=== PATIENT | female | born 1990 | race Caucasian/White ===

== ENCOUNTER 2017-01-07 18:29 | Emergency (ER) | payer SELFPAY ==
--- NOTE | 2017-01-07 20:06 | ER Document Report ---
ED Skin Rash/Insect Bite/Abscs - General Mode of Arrival: Ambulatory Information source: Patient TRAVEL OUTSIDE OF THE [place] IN LAST 30 DAYS: No - General Chief Complaint: Abscess Stated Complaint: ABSCESS ON STOMACH Time Seen by Provider: 01/07/17 19:34 Notes: Patient is a 26-year-old female presenting to the emergency department today with complaints of right lower quadrant abdominal abscess. Patient states she was seen in urgent care prior to arrival here and she was told it was an abscess and that she needed to come to the emergency room to have it drained. Patient states she noticed a "pea-sized knot" there for approximately 3 months which caused no pain. Patient states she recently went on a walk and she believes her shorts were rubbing against this area and it has progressively gotten bigger over the last 2 days. Patient has a history of MRSA. (TAVO MCCAULEY) - Related Data Allergies/Adverse Reactions: cefixime [From Suprax] Allergy (Verified 01/07/17 18:30) sulfamethoxazole [From Septra] Allergy (Verified 01/07/17 18:30) trimethoprim [From Septra] Allergy (Verified 01/07/17 18:30) Past Medical History - General Information source: Patient - Social History Smoking Status: Never Smoker Cigarette use (# per day): No Frequency of alcohol use: None Drug Abuse: None Lives with: Family Family History: Reviewed & Not Pertinent Patient has suicidal ideation: No Patient has homicidal ideation: No Pulmonary Medical History: Reports: Hx Asthma - childhood Past Surgical History: Reports: Hx Tonsillectomy - Immunizations Hx Diphtheria, Pertussis, Tetanus Vaccination: Yes - given today Review of Systems - Review of Systems Constitutional: No symptoms reported EENT: No symptoms reported Cardiovascular: No symptoms reported Respiratory: No symptoms reported Gastrointestinal: No symptoms reported Genitourinary: No symptoms reported Female Genitourinary: No symptoms reported Musculoskeletal: No symptoms reported Skin: See HPI, Other - possible abscess Hematologic/Lymphatic: No symptoms reported Neurological/Psychological: No symptoms reported -: Yes All other systems reviewed and negative Physical Exam - Vital signs Vitals: Temp Pulse Resp BP Pulse Ox 99.1 F 91 16 146/99 H 98 01/07/17 18:30 01/07/17 18:30 01/07/17 18:30 01/07/17 18:30 01/07/17 18:30 - Notes Notes: Physical Exam: General: Alert, appears well. HEENT: Normocephalic. Atraumatic. PERRL. Extraocular movements intact. Oropharynx clear. Neck: Supple. Non-tender. Respiratory: No respiratory distress. Clear and equal breath sounds bilaterally. Cardiovascular: Regular rate and rhythm. Abdominal: Normal Inspection. Non-tender. No distension. Normal Bowel Sounds. Back: Non-tender. No deformity or step off. Extremities: Moves all four extremities. Upper extremities: Normal inspection. Normal ROM. Lower extremities: Normal inspection. No edema. Normal ROM. Neurological: Normal cognition. AAOx4. Normal speech. Psychological: Normal affect. Normal Mood. Skin: Area of erythema to right lower abdomen consistent with cellulitis surrounding what appears to be a lipoma. No drainage or fluctuance. (TAVO MCCAULEY) Discharge - Discharge Clinical Impression: Cellulitis Condition: Stable Disposition: HOME, SELF-CARE Instructions: MRSA Cellulitis ([facility]) Additional Instructions: Cellulitis You have an infection of your skin and underlying soft tissues called cellulitis. This is due to bacteria, which can enter through any break in the skin, or even through an irritated hair follicle. Untreated, cellulitis will usually worsen. Antibiotics are required. Usually, warm packs or warm soaks, and elevation of the infected area are recommended. You should start getting better within 24 to 36 hours. Most infections respond quickly to the right medication. Follow-up care is important, however, to check for abscess (boil) formation, unsuspected foreign body, or resistant infection. If you develop fever, chills, or if the area of infection is becoming rapidly more swollen or painful, call the doctor at once. follow up with your primary care physician in 2-3 days return for increased worsening or new symptoms Prescriptions: Clindamycin HCl 300 mg PO BID #14 capsule Clindamycin in 0.9 % Sod Chlor [Clindamycin 600 mg/50 ml-Ns] 600 mg IV BID #14 piggyback Scribe Attestation: 01/07/17 21:25 I personally performed the services described in the documentation reviewed the documentation recorded by my scribe in my presence and it accurately and completely records my words and actions (RASHIDA FENTON) Scribe Documentation - Scribe Written by Scribe:: Jh Love, 01/08/2017 0311 acting as scribe for :: Marty
[2017-01-07] MEDS ORDERED: CLINDAMYCIN PHOSPHATE INJ 300 MG/2 ML SDV IM ONE (20:29)
[2017-01-07 21:42] VITALS: BP 125/78
== END 2017-01-07 21:43 | disposition home or self-care (01) ==
LOC: ER 18:29
DX: L03.311 Cellulitis of abdominal wall (principal); Z88.3 Allergy status to other anti-infective agents
CPT/HCPCS: 96372; 99282

== ENCOUNTER 2018-12-10 18:11 | Emergency (ER) | payer BC ==
--- NOTE | 2018-12-10 18:55 | ER Document Report ---
ED Medical Screen (RME) - General Chief Complaint: Overdose Stated Complaint: POSSIBLE OVERDOSE Time Seen by Provider: 12/10/18 18:52 Mode of Arrival: Ambulatory Information source: Patient, Law Enforcement Notes: Patient is a 28-year-old female presented to the emergency department on IVC papers. Patient allegedly overdosed on Percocet. She reports that she took one 30 mg tablet of Percocet just a few hours prior to arrival. She states she did this because she was having some pain. This is not prescribed to her. She denies any suicidal or homicidal intentions. Per [employer] she had to be given Narcan which is why she was IVC'd as after she was given Narcan she became alert and was trying to decline treatment. I have greeted and performed a rapid initial assessment of this patient. A comprehensive ED assessment and evaluation of the patient, analysis of test results and completion of the medical decision making process will be conducted by additional ED providers. Dictation of this chart was performed using voice recognition software; therefore, there may be some unintended grammatical errors. TRAVEL OUTSIDE OF THE [place] IN LAST 30 DAYS: No - Related Data Allergies/Adverse Reactions: cefixime [From Suprax] Allergy (Verified 12/10/18 18:12) sulfamethoxazole [From Septra] Allergy (Verified 12/10/18 18:12) trimethoprim [From Septra] Allergy (Verified 12/10/18 18:12) Past Medical History - Social History Drug Abuse: Marijuana, Prescription drugs Pulmonary Medical History: Reports: Hx Asthma - childhood Renal/ Medical History: Denies: Hx Peritoneal Dialysis Past Surgical History: Reports: Hx Tonsillectomy - Immunizations Hx Diphtheria, Pertussis, Tetanus Vaccination: Yes - given today Physical Exam - Vital signs Vitals: Temp Pulse Resp BP Pulse Ox 98.6 F 74 16 141/88 H 97 12/10/18 18:18 12/10/18 18:18 12/10/18 18:18 12/10/18 18:18 12/10/18 18:18 Course - Vital Signs Vital signs: Temp Pulse Resp BP Pulse Ox 98.6 F 74 16 141/88 H 97 12/10/18 18:18 12/10/18 18:18 12/10/18 18:18 12/10/18 18:18 12/10/18 18:18
[2018-12-10] MEDS ORDERED: ONDANSETRON 4 MG TAB.RAPDIS PO ONE (18:59)
[2018-12-10] MEDS ORDERED: ONDANSETRON 4 MG TAB.RAPDIS ONE (18:59)
[2018-12-10 19:52] LABS: ABSOLUTE EOSINOPHILS # (AUTO) 0.1 10^3/uL (0.0-0.6); ABSOLUTE LYMPHOCYTES (AUTO) 2.2 10^3/uL (0.5-4.7); ABSOLUTE MONOCYTES (AUTO) 1.2 10^3/uL (0.1-1.4); ABSOLUTE NEUT (AUTO) 14.2 10^3/uL (1.7-8.2); BASOPHILS % (AUTO) 0.2 % (0-2); EOSINOPHILS % (AUTO) 0.7 % (0-6); HEMATOCRIT 43.4 % (36.0-47.0); HEMOGLOBIN 14.9 g/dL (12.0-15.5); LYMPHOCYTES % (AUTO) 12.5 % (13-45); MEAN CORPUSCULAR HGB CONC 34.4 g/dL (32.0-36.0); MEAN CORPUSCULAR VOLUME 93 fl (80-97); MONOCYTES % (AUTO) 6.7 % (3-13); PLATELET COUNT 239 10^3/uL (150-450); RED BLOOD COUNT 4.66 10^6/uL (3.72-5.28); RED CELL DISTRIBUTION WIDTH 12.7 % (11.5-14.0); SEGMENTED NEUTROPHILS % (AUTO) 79.9 % (42-78); TOTAL CELLS COUNTED % (AUTO) 100 %; WHITE BLOOD COUNT 17.8 10^3/uL (4.0-10.5)
[2018-12-10 19:58] LABS: APPEARANCE,URINE SLIGHTLY-CLOUDY; BILIRUBIN,URINE NEGATIVE (NEGATIVE); COLOR,URINE YELLOW; GLUCOSE, URINE NEGATIVE (NEGATIVE); KETONES,URINE NEGATIVE (NEGATIVE); LEUKOCYTE ESTERASE,URINE NEGATIVE (NEGATIVE); NITRITE,URINE NEGATIVE (NEGATIVE); PROTEIN,URINE NEGATIVE (NEGATIVE); URINE SPECIFIC GRAVITY 1.015; UROBILINOGEN,URINE NEGATIVE mg/dL (<2.0)
--- NOTE | 2018-12-10 20:03 | EKG REPORT ---
SEVERITY:- NORMAL ECG - SINUS RHYTHM : Confirmed by: Salvador Azul MD 10-Dec-2018 20:02:33
[2018-12-10 20:11] LABS: URINE AMPHETAMINES SCREEN NEGATIVE; URINE BARBITURATES SCREEN NEGATIVE; URINE BENZODIAZEPINES SCREEN NEGATIVE; URINE COCAINE SCREEN NEGATIVE; URINE MARIJUANA (THC) SCREEN UNCONFIRMED POSITIVE; URINE METHADONE SCREEN NEGATIVE; URINE PHENCYCLIDINE SCREEN NEGATIVE
[2018-12-10 20:13] LABS: ALANINE AMINOTRANSFERASE 37 U/L (9-52); ALBUMIN 4.5 g/dL (3.5-5.0); ALKALINE PHOSPHATASE 55 U/L (38-126); ANION GAP 12 (5-19); ASPARTATE AMINO TRANSFERASE 25 U/L (14-36); BILIRUBIN,DIRECT 0.2 mg/dL (0.0-0.4); BILIRUBIN,TOTAL 0.2 mg/dL (0.2-1.3); BLOOD UREA NITROGEN 9 mg/dL (7-20); CALCIUM 9.8 mg/dL (8.4-10.2); CARBON DIOXIDE 26 mmol/L (22-30); CHLORIDE 105 mmol/L (98-107); GLUCOSE 114 mg/dL (75-110); POTASSIUM 4.6 mmol/L (3.6-5.0); SODIUM 143.3 mmol/L (137-145); TOTAL PROTEIN 7.6 g/dL (6.3-8.2)
[2018-12-10 20:14] LABS: ACETAMINOPHEN < 10 ug/mL (10-30); ALCOHOL < 10 mg/dL (NONE DETECTED); SALICYLATE < 1.0 mg/dL (2.0-20.0)
--- NOTE | 2018-12-10 21:40 | ER Document Report ---
ED General - General Chief Complaint: Overdose Stated Complaint: POSSIBLE OVERDOSE Time Seen by Provider: 12/10/18 18:52 Primary Care Provider: CARMENCITA ALAN MD [Primary Care Provider] - Follow up as needed Mode of Arrival: Ambulatory Information source: Patient Notes: This is a 28-year-old female that was brought in by EMS after an overdose. Patient reports that she was having back pain after a softball game yesterday. She states she ate lunch at 1130 (a salad). She states she took a pain pill at approximately 5 PM she got the pain pill from her friend. On her way home she was at the gas station and became unresponsive. EMS was called to the scene and found the patient with agonal breathing and gave her Narcan which completely reversed her symptoms. She was brought to the emergency room and had been in the ER for several hours. Currently, she has no complaints. She is fully alert and oriented x3 and is requesting to go home. She denies any suicidal ideations. There was a question on whether the patient was an involuntary commit, but this was not an intentional overdose. TRAVEL OUTSIDE OF THE [place] IN LAST 30 DAYS: No - HPI Onset: Just prior to arrival Onset/Duration: Sudden Quality of pain: No pain Severity: None Pain Level: Denies Associated symptoms: denies: Chest pain, Fever, Shortness of breath Exacerbated by: Denies Relieved by: Denies Similar symptoms previously: No Recently seen / treated by doctor: No - Related Data Allergies/Adverse Reactions: cefixime [From Suprax] Allergy (Verified 12/10/18 18:12) sulfamethoxazole [From Septra] Allergy (Verified 12/10/18 18:12) trimethoprim [From Septra] Allergy (Verified 12/10/18 18:12) Past Medical History - General Information source: Patient, Law Enforcement - Social History Smoking Status: Never Smoker Cigarette use (# per day): No Chew tobacco use (# tins/day): No Frequency of alcohol use: None Drug Abuse: Marijuana, Prescription drugs Lives with: Family Family History: Reviewed & Not Pertinent Patient has suicidal ideation: No Patient has homicidal ideation: No - Past Medical History Cardiac Medical History: Reports: None Pulmonary Medical History: Reports: Hx Asthma - childhood Neurological Medical History: Reports: None Endocrine Medical History: Reports: None Renal/ Medical History: Reports: None. Denies: Hx Peritoneal Dialysis Malignancy Medical History: Reports: None GI Medical History: Reports: None Musculoskeletal Medical History: Reports None Skin Medical History: Reports None Psychiatric Medical History: Reports: None Traumatic Medical History: Reports: None Infectious Medical History: Reports: None Past Surgical History: Reports: Hx Tonsillectomy - Immunizations Hx Diphtheria, Pertussis, Tetanus Vaccination: Yes - given today Review of Systems - Review of Systems Constitutional: No symptoms reported EENT: No symptoms reported Cardiovascular: See HPI Respiratory: See HPI Gastrointestinal: No symptoms reported Genitourinary: No symptoms reported Female Genitourinary: No symptoms reported Musculoskeletal: No symptoms reported Skin: No symptoms reported Hematologic/Lymphatic: No symptoms reported Neurological/Psychological: No symptoms reported Physical Exam - Vital signs Vitals: Temp Pulse Resp BP Pulse Ox 98.6 F 74 16 141/88 H 97 12/10/18 18:18 12/10/18 18:18 12/10/18 18:18 12/10/18 18:18 12/10/18 18:18 Notes: Physical exam: GENERAL: She is alert and oriented x3, no acute distress HEAD: Atraumatic, normocephalic. EYES: Pupils equal round and reactive to light, extraocular movements intact, sclera anicteric, conjunctiva are normal. ENT: TMs normal, nares patent, oropharynx clear without exudates. Moist mucous membranes. NECK: Normal range of motion, supple without obvious mass or JVD. LUNGS: Breath sounds clear to auscultation bilaterally and equal. No wheezes rales or rhonchi. HEART: Regular rate and rhythm without murmurs, rubs or gallops. ABDOMEN: Soft, normoactive bowel sounds. No tenderness to palpation. No guarding, no rebound. No masses appreciated. EXTREMITIES: Normal range of motion, no pitting or edema. No clubbing or cyanosis. NEUROLOGICAL: Cranial nerves II through XII grossly intact. Normal speech, moving all extremities. PSYCH: Normal mood, normal affect. No suicidal ideations SKIN: Warm, Dry, normal turgor, no rashes or lesions noted. Course - Vital Signs Vital signs: Temp Pulse Resp BP Pulse Ox 98.1 F 80 18 145/89 H 98 12/10/18 21:46 12/10/18 21:46 12/10/18 21:46 12/10/18 21:46 12/10/18 21:46 - Laboratory Result Diagrams: 12/10/18 19:35 12/10/18 19:35 Laboratory results interpreted by me: 12/10/18 12/10/18 12/10/18 19:25 19:35 19:35 WBC 17.8 H Seg Neutrophils % 79.9 H Lymphocytes % 12.5 L Absolute Neutrophils 14.2 H Glucose 114 H Urine Blood SMALL H Salicylates < 1.0 L Acetaminophen < 10 L - EKG Interpretation by Me Rate: Normal Rhythm: NSR - EKG shows normal sinus rhythm with a ventricular rate of 63, no acute ST-T wave changes Discharge - Discharge Clinical Impression: Overdose-accidental Condition: Stable Disposition: HOME, SELF-CARE Additional Instructions: Recommendations: As we discussed, the medicine should be working its way out of your system. I would just take it easy this evening. Keep in mind that the medicine can give you a lot of constipation. The amount of oxycodone that you took was a significant amount (the same is 6 x 5 mg Percocets). I would be careful with this medicine and in the future. As far as the back pain: Go with ibuprofen and has a better anti-inflammatory effect. You could try heat to the area also as well as using the foam roller and str etching the back gently on a flat surface. Return to the ER for any increased lethargy or any concerns he may be getting worse. Referrals: CARMENCITA ALAN MD [Primary Care Provider] - Follow up as needed
[2018-12-10 21:47] VITALS: BP 145/89
== END 2018-12-10 21:46 | disposition home or self-care (01) ==
LOC: ER 18:11
DX: T39.91XA Poisoning by unspecified nonopioid analgesic, antipyretic and antirheumatic, accidental (unintentional), initial encounter (principal); Y92.524 Gas station as the place of occurrence of the external cause; F12.10 Cannabis abuse, uncomplicated; Z88.1 Allergy status to other antibiotic agents
CPT/HCPCS: 93005; 99284; 36415; 80307 ×4; 85025; 80053; 81001; 93010; S0119

== ENCOUNTER 2019-04-04 14:30 | Emergency (ER) | payer BC ==
[2019-04-04] MEDS ORDERED: IBUPROFEN 800 MG TABLET PO ONE (15:26)
[2019-04-04] MEDS ORDERED: PSEUDOEPHEDRINE HCL 30 MG TABLET PO ONE (15:26)
[2019-04-04] MEDS ORDERED: GUAIFENESIN 600 MG TABLET.SA PO ONE (15:26)
[2019-04-04] MEDS ORDERED: LORATADINE 10 MG TABLET PO ONE (15:26)
--- NOTE | 2019-04-04 15:27 | ER Document Report ---
HPI - HPI Patient complains to provider of: Cough Time Seen by Provider: 04/04/19 15:22 Onset: Other - Since for 3 days Onset/Duration: Gradual, Constant Quality of pain: Other - Type Severity: Moderate Pain Level: 3 Associated Symptoms: Chest pain - With cough, Productive cough - Phlegm, Hurts to breath, Rhinnorhea, Sinus pain/drainage, Shortness of breath Exacerbated by: Coughing Relieved by: Denies Similar symptoms previously: Yes Recently seen / treated by doctor: No - ROS ROS below otherwise negative: Yes - CONSTITUTIONAL Constitutional: DENIES: Fever, Chills - EENT EENT: REPORTS: Nasal Drainage-Purulent, Congestion - NEURO Neurology: REPORTS: Headache - CARDIOVASCULAR Cardiovascular: REPORTS: Chest pain - with cough - RESPIRATORY Respiratory: REPORTS: Coughing - GASTROINTESTINAL Gastrointestinal: DENIES: Abdominal Pain, Nausea, Patient vomiting, Diarrhea, Constipation, Black / Bloody Stools - URINARY Urinary: DENIES: Dysuria, Urgency, Frequency - REPRODUCTIVE Reproductive: DENIES: :, Postmenopausal, Abnormal bleeding / discharge - MUSCULOSKELETAL Musculoskeletal: DENIES: Extremity pain, Back Pain, Neck Pain, Swelling - DERM Skin Color: Normal Skin Problems: None Past Medical History - General Information source: Patient - Social History Smoking Status: Current Every Day Smoker - He smokes a half a Cigarette use (# per day): Yes - 5 to 6 cigarettes a day Smoking Education Provided: Yes - 4minutes and Frequency of alcohol use: None Drug Abuse: None Lives with: Family Family History: Reviewed & Not Pertinent Patient has suicidal ideation: No Patient has homicidal ideation: No - Past Medical History Cardiac Medical History: Reports: None Pulmonary Medical History: Reports: Hx Asthma - childhood EENT Medical History: Reports: None Neurological Medical History: Reports: None - Is childhood Endocrine Medical History: Reports: None Renal/ Medical History: Reports: None. Denies: Hx Peritoneal Dialysis Malignancy Medical History: Reports: None GI Medical History: Reports: None Musculoskeletal Medical History: Reports None Skin Medical History: Reports None Psychiatric Medical History: Reports: None Traumatic Medical History: Reports: None Past Surgical History: Reports: Hx Adenoidectomy, Hx Section, Hx Myringotomy, Hx Tonsillectomy - Immunizations Hx Diphtheria, Pertussis, Tetanus Vaccination: Yes Vertical Provider Document - CONSTITUTIONAL Agree With Documented VS: Yes Exam Limitations: No Limitations General Appearance: WD/WN, No Apparent Distress - INFECTION CONTROL TRAVEL OUTSIDE OF THE [place] IN LAST 30 DAYS: No - HEENT HEENT: Atraumatic, Normocephalic, PERRLA Notes: She is to swelling to the nasal turbinates erythema with purulent nasal drainage. Oral mucosa mildly red does not have tonsils. Postnasal drip noted. Lungs clear - NECK Neck: Normal Inspection - RESPIRATORY Respiratory: Breath Sounds Normal, No Respiratory Distress. negative: Chest Non-Tender - Chest tenderness but more so with cough, Rales, Rhonchi, Wheezing - CARDIOVASCULAR Cardiovascular: Regular Rate, Regular Rhythm, No Murmur - GI/ABDOMEN Gastrointestinal: Abdomen Soft, Abdomen Non-Tender, No Organomegaly, Normal Bowel Sounds - BACK Back: Normal Inspection - MUSCULOSKELETAL/EXTREMETIES Musculoskeletal/Extremeties: MAEW, FROM, Non-Tender - NEURO Level of Consciousness: Awake, Alert, Appropriate Course - Re-evaluation Re-evalutation: 04/04/19 22:47 After performing a Medical Screening Examination, I estimate there is LOW risk for ACUTE CORONARY SYNDROME, RESPIRATORY FAILURE, SEPSIS OR MENINGITIS, thus I consider the discharge disposition reasonable. I have reevaluated this patient multiple times and no significant life threatening changes are noted. The patient and I have discussed the diagnosis and risks, and we agree with discharging home with close follow-up. We also discussed returning to the Emergency Department immediately if new or worsening symptoms occur. We have discussed the symptoms which are most concerning (e.g., changing or worsening pain, trouble swallowing or breathing, neck stiffness, fever) that necessitate immediate return. - Vital Signs Vital signs: Temp Pulse Resp BP Pulse Ox 98.7 F 85 18 133/71 H 98 04/04/19 14:38 04/04/19 14:38 04/04/19 14:38 04/04/19 14:38 04/04/19 14:38 Discharge - Discharge Clinical Impression: Viral sore throat URI (upper respiratory infection) Qualifiers: URI type: unspecified viral URI Qualified Code(s): J06.9 - Acute upper respiratory infection, unspecified Condition: Stable Disposition: HOME, SELF-CARE Additional Instructions: UPPER RESPIRATORY ILLNESS: You have a viral infection of the respiratory passages -- a "cold." This common infection causes nasal congestion, drainage, and often sore throat and cough. It is highly contagious. The disease usually lasts about 10 to 14 days. There is no "cure" for the viral infection -- it must run its course. If there is a complication, such as bacterial infection in the nose, sinuses, middle ear, or bronchial tubes, antibiotics may be required. The antibiotics won't affect the virus. Drink plenty of fluids. A humidifier may help. An expectorant medication or decongestant may make you more comfortable. Use acetaminophen or ibuprofen for fever or aches. See the doctor if fever persists over two days, if there is any significant worsening of your symptoms, or if you simply fail to improve as expected. DECONGESTANT MEDICATION: A decongestant medicine has been suggested. Often this medicine is combined in the same tablet with an antihistamine or expectorant. This type of medicine is helpful in treating a bad cold or sinus condition, as well as in treatment of the nasal congestion of hay fever. It is not of much benefit for lung infections. Decongestant medicines are related to stimulants. They can cause an increase in blood pressure and heart rate. Persons with heart disease and high blood pressure should not take decongestants without discussing this with the physician. If you develop palpitations, chest pain, headache, or tremors, stop the medicine and consult your physician. COUGH-SUPPRESSANT & EXPECTORANT MEDICATION: You are to use a cough medication as needed for relief of symptoms. This medicine is a combination of an expectorant (to make the mucous thinner and more easily "coughed up") and a cough suppressant (to reduce the frequency of coughing). The cough-suppressant medicine is related to narcotics. You may experience mild nausea and sleepiness. Some patients who are very sensitive to narcotics may have stomach pain from this medicine. Taking the medicine with food reduces these side effects. Do not drive or work with machinery until you know how this medicine affects you. The expectorant should have no side effects. Iodine-containing expectorants (such as organidin) should not be taken by persons with active thyroid disease unless approved by your doctor. Call the doctor if you develop shortness of breath, hives, rash, itching, lightheadedness, or severe nausea and vomiting. I have treated you with Claritin 10 mg, Sudafed 30 mg, Mucinex 600 mg, and ibuprofen. These are all [id number] medications that you can buy at the drugstore. Please follow the package instructions. He can also use Flonase nasal spray which will help your symptoms a lot. This is ylau-bhk-ezjijme use according box instructions. Some subtle solution gargles will also help with your drainage. This will remove the drainage from the back your throat and will decrease your coughing. USE OF ACETAMINOPHEN (Tylenol): Acetaminophen may be taken for pain relief or fever control. It's much safer than aspirin, offering a wider range of "safe" dosages. It is safe during . Some brand names are Tylenol, Panadol, Datril, Anacin 3, Tempra, and Liquiprin. Acetaminophen can be repeated every four hours. The following are maximum recommended dosages: >89 pounds or adults 650 mg to 900 mg Acetaminophen can be repeated every four hours. Maximum dose not to exceed 4000 mg a day. SMOKING: If you smoke, you should stop smoking. The tar and chemicals in cigarette smoke are harmful. Smoking has been shown to cause: emphysema chronic bronchitis lung cancer mouth and throat cancer stomach and pancreas cancer premature aging defects In addition, smoking increases ear and lung infections in children of smokers. Salt and soda solution 1 quart of water 1 tablespoon of salt 1 teaspoon of baking soda Mixed 3 ingredients together and boil for 1 minute Placed in a covered quart jar Use 1/2 ounce of cold solution to gargle 3 times a day FOLLOW-UP CARE: If you have been referred to a physician for follow-up care, call the physicians office for an appointment as you were instructed or within the next two days. If you experience worsening or a significant change in your symptoms, notify the physician immediately or return to the Emergency Department at any ti me for re-evaluation. Forms: Elevated Blood Pressure, Smoking Cessation Education Referrals: CARMENCITA ALAN MD [Primary Care Provider] - Follow up in 3-5 days
[2019-04-04 15:36] VITALS: BP 131/71
== END 2019-04-04 15:38 | disposition home or self-care (01) ==
LOC: ER 14:30
DX: J06.9 Acute upper respiratory infection, unspecified (principal); J02.9 Acute pharyngitis, unspecified; B97.89 Other viral agents as the cause of diseases classified elsewhere; R05 Cough; R07.9 Chest pain, unspecified; J34.89 Other specified disorders of nose and nasal sinuses; F17.210 Nicotine dependence, cigarettes, uncomplicated; J45.909 Unspecified asthma, uncomplicated
CPT/HCPCS: 99283; 99406

== ENCOUNTER 2019-06-18 06:50 | Day surgery (SDC) | payer BC ==
[2019-06-11 11:16] LABS: APPEARANCE,URINE CLEAR; BILIRUBIN,URINE NEGATIVE (NEGATIVE); COLOR,URINE STRAW; GLUCOSE, URINE NEGATIVE (NEGATIVE); KETONES,URINE NEGATIVE (NEGATIVE); LEUKOCYTE ESTERASE,URINE NEGATIVE (NEGATIVE); NITRITE,URINE NEGATIVE (NEGATIVE); PROTEIN,URINE NEGATIVE (NEGATIVE); URINE SPECIFIC GRAVITY 1.004; UROBILINOGEN,URINE NEGATIVE mg/dL (<2.0)
[2019-06-11 12:07] LABS: HEMOGLOBIN 15.1 g/dL (12.0-15.5); MEAN CORPUSCULAR HGB CONC 34.4 g/dL (32.0-36.0); MEAN CORPUSCULAR VOLUME 93 fl (80-97); PLATELET COUNT 267 10^3/uL (150-450); RED BLOOD COUNT 4.74 10^6/uL (3.72-5.28); RED CELL DISTRIBUTION WIDTH 13.1 % (11.5-14.0); WHITE BLOOD COUNT 11.2 10^3/uL (4.0-10.5)
[2019-06-11 12:36] LABS: ALBUMIN 4.6 g/dL (3.5-5.0); ALKALINE PHOSPHATASE 53 U/L (38-126); ANION GAP 12 (5-19); ASPARTATE AMINO TRANSFERASE 24 U/L (14-36); BILIRUBIN,DIRECT 0.1 mg/dL (0.0-0.4); BILIRUBIN,TOTAL 0.4 mg/dL (0.2-1.3); BLOOD UREA NITROGEN 7 mg/dL (7-20); CARBON DIOXIDE 26 mmol/L (22-30); CHLORIDE 105 mmol/L (98-107); GLUCOSE 78 mg/dL (75-110); POTASSIUM 4.4 mmol/L (3.6-5.0)
[~2019-06-18 06:50] MED LIST: GENTAMICIN SULFATE 80 MG in DEXTROSE 5%-WATER 100 ML IV PRN; LACTATED RINGERS 1000 ML IV PRN
[2019-06-18] MEDS ORDERED: ALBUTEROL SULFATE 0.083% NEB 2.5 MG/3 ML AMPUL NEB ONE (07:24)
[2019-06-18] MEDS ORDERED: BUPIVACAINE HCL 0.25 % INJ/PF (2.5 MG/1 ML) 30 ML VIAL ONE (07:47)
[2019-06-18] MEDS ORDERED: SCOPOLAMINE HYDROBROMIDE 1.5 MG PATCH.TD72 ONE (08:05)
[2019-06-18] MEDS ORDERED: MIDAZOLAM 2 MG/2 ML INJ ONE (08:20)
[2019-06-18] MEDS ORDERED: PROPOFOL INJ 200 MG/20 ML VIAL IV ONE (08:20)
[2019-06-18] MEDS ORDERED: FENTANYL CITRATE INJ/PF 250 MCG/5 ML AMPULE ONE (08:20)
[2019-06-18] MEDS ORDERED: HYDROMORPHONE HCL INJ/PF 2 MG/ML AMPULE ONE (08:20)
[2019-06-18] MEDS ORDERED: DIPHENHYDRAMINE HCL 50 MG/ML VIAL IV PRN (09:15)
[2019-06-18] MEDS ORDERED: FENTANYL CITRATE INJ/PF 100 MCG/2 ML AMPUL IV PRN ×3 (09:15)
[2019-06-18] MEDS ORDERED: MEPERIDINE HCL/PF INJ 25 MG/1 ML DISP.SYRIN IV PRN (09:15)
[2019-06-18] MEDS ORDERED: PROMETHAZINE HCL INJ 25 MG/1 ML VIAL IV PRN ×3 (09:15→10:19)
[2019-06-18] MEDS ORDERED: OXYCODONE-ACETAMINOPHEN 5-325 MG TABLET PO PRN ×2 (10:18→10:19)
--- NOTE | 2019-06-18 10:27 | Operative Report ---
Nonrecallable Operative Report DATE OF SURGERY: 06/18/19 PREOPERATIVE DIAGNOSIS: intra-operative consultation for intra-abdominal adhesions POSTOPERATIVE DIAGNOSIS: same OPERATION: laparoscopic lysis of adhesions SURGEON: SHALINI HERNANDEZ 1ST DAIRY FARMER: [place] LEONARD ANESTHESIA: GA TISSUE REMOVED OR ALTERED: none COMPLICATIONS: Intra-abdominal IUD with a large amount of adhesions involving the omentum. Lysis of adhesions was necessary. ESTIMATED BLOOD LOSS: minimal PROCEDURE: Indication for the procedure: This is a 28-year-old female patient of Dr. Leonard. He was performing a laparoscopy, where a displaced IUD was identified. There is a large amount of omental adhesions surrounding the IUD. Intraoperative consultation was placed to general surgery to assist with lysis of adhesions so that extraction of the IUD could be possible. Drains/implants: None. Procedure in detail: I entered the room after the procedure was already in progress. Dr. Leonard visualized the IUD using laparoscopy. It was involved with a large amount of adhesions of the omentum. I then scrubbed into the case. An additional left lower quadrant 5 mm trocar was then placed under direct laparoscopic visualization. Using atraumatic graspers and the harmonic scalpel, lysis of adhesions was undertaken. The lysis of adhesions was successful in exposing the malpositioned, intra-abdominal intrauterine device. After lysis of adhesions was completed, Dr. Leonard removed the IUD. Please see his dictation for details regarding this. At this time my portion of the procedure was concluded. The procedure was concluded and the abdomen was closed by Dr. Leonard. Condition: Stable.
[2019-06-18] MEDS ORDERED: OXYCODONE-ACETAMINOPHEN 5-325 MG TABLET ONE (10:37)
[2019-06-18 12:08] VITALS: BP 120/71
--- NOTE | 2019-06-18 15:56 | Operative Report ---
Operative Report DATE OF SURGERY: 06/18/19 PREOPERATIVE DIAGNOSIS: Intraabdominal IUD POSTOPERATIVE DIAGNOSIS: same OPERATION: Laparoscopic removal of intraabdominal IUD 1ST REWIND OPERATOR: Diana Boyle ANESTHESIA: GA TISSUE REMOVED OR ALTERED: Omental imbedded IUD COMPLICATIONS: None ESTIMATED BLOOD LOSS: 25 cc INTRAOPERATIVE FINDINGS: IUD imbedded in the abdoominal omentum / retroflex uterus with normal right and left ovaries /Normal Liver / Normal small and large bowel
--- NOTE | 2019-06-18 16:45 | Operative Report ---
Operative Report DATE OF SURGERY: 06/18/19 PREOPERATIVE DIAGNOSIS: Intra abdominal IUD POSTOPERATIVE DIAGNOSIS: same OPERATION: Laparoscopic removal of intraabdominal IUD SURGEON: nanci OCASIO [employer]: [place] ANESTHESIA: GA TISSUE REMOVED OR ALTERED: IUD imbedded in the tip of the omentum COMPLICATIONS: None ESTIMATED BLOOD LOSS: 25 cc INTRAOPERATIVE FINDINGS: Retroflexed normal uterus / normal right and left ovaries / IUD imbedded in the tip of the omentum / normal small and large bowel / normal liver / normal stomach PROCEDURE: Patient was brought into the OR and placed on the table in a supine position. The patient was then inducted under general anesthesia. Having obtained a good level of anesthesia the patient was repositioned in the dorsolithotomy. She was then prepped and draped in a sterile fashion. The bladder was drained of a small amount of urine. A pelvic under anesthesia was then performed. The uterus was retroflexed the adnexa were negative. [place] vaginal speculum was inserted and opened up. The uterus was grasped on its anterior lip with a single-tooth tenaculum. The uterus was sounded to 7 cm. A tenaculum probe was then secured to the anterior lip of the cervix and the other tenaculum was removed. Attention was then turned to the abdominal wall. A varies needle was then inserted through the umbilicus until the peritoneal cavity was entered. The varies needle was then connected to the CO2 insufflator. Opening pressures were 6 cm of water. Approximately 3 L of CO2 were then infused into the abdominal peritoneal cavity. At 3 L of CO2 the intraperitoneal pressures were 15 cm of water. The varies needle was removed. A small incision was then made infraumbilically. Through this incision a trocar and sleeve were inserted. The trocar was then removed and a laparoscope was placed through the sleeve. There was good visualization of the pelvic structures. A second incision was made suprapubically. Through this incision a trocar and sleeve were inserted. The trocar was then removed. Through the suprapubic sleeve a probe was inserted. The contents of the pelvis and the abdominal cavity were then visualized. The intra-abdominal IUD was then visualized inbedded and the tip of the omentum. We then asked Dr. Mueller to come in and assist us in the removal of the IUD. Dr. Mueller will dictate his part of the procedure. Having removed the IUD the contents of the abdominal cavity and pelvis were then revisualized with no evidence of active bleeding. The sleeves were then removed first allowing the CO2 to escape. The fascial defects were then closed with 0 vicaryl. The skin incision were closed with 4 O prolene. Attention was then returned to the perineum. The tenaculum probe was removed. A bivalve vaginal speculum was inserted into the vagina and opened up. There was no bleeding noticed. This terminated the procedure. The patient was placed back in the supine position. Anesthesia was then discontinued. The drapes had already been removed and bandages have been applied. Patient was transferred to the recovery room in satisfactory condition with an estimated blood loss of 25 cc.
[2019-06-18] MEDS ORDERED: LIDOCAINE 2% INJ-PF (20 MG/ML) 2 ML AMPUL ONE (17:32)
[2019-06-18] MEDS ORDERED: ONDANSETRON HCL INJ/PF 4 MG/2 ML SDV ONE (17:32)
[2019-06-18] MEDS ORDERED: SUCCINYLCHOLINE CHLORIDE INJ 200 MG/10 ML VIAL ONE (17:32)
[2019-06-18] MEDS ORDERED: GLYCOPYRROLATE 1 MG/5 ML VIAL ONE (17:32)
[2019-06-18] MEDS ORDERED: NEOSTIGMINE METHYLSULFATE 10 MG/10 ML VIAL ONE (17:32)
[2019-06-18] MEDS ORDERED: METOCLOPRAMIDE HCL INJ/PF 10 MG/2 ML SDV ONE (17:32)
[2019-06-18] MEDS ORDERED: DEXAMETHASONE SOD PHOSPHATE INJ 4 MG/1 ML VIAL ONE (17:32)
[2019-06-18] MEDS ORDERED: ROCURONIUM BROMIDE INJ 50 MG/5 ML VIAL IV ONE (17:32)
== END 2019-06-18 12:09 | disposition home or self-care (01) ==
LOC: OROUT 06:50
PROVIDERS: ATTEND Obstetrics & Gynecology
DX: T83.32XA Displacement of intrauterine contraceptive device, initial encounter (principal); Y76.3 Surgical instruments, materials and obstetric and gynecological devices (including sutures) associated with adverse incidents; K66.0 Peritoneal adhesions (postprocedural) (postinfection); F17.210 Nicotine dependence, cigarettes, uncomplicated
CPT/HCPCS: 58301; 49320; 36415; 85027; 81025; 80053; 81001; 88305 ×2; 00840; J2250; J3490 ×3; J1100; J3010; J1580; J2765; J2710; J1170; J0330; J2405; J7060; J2704; 840